=== PATIENT | female | born 1985 | race Caucasian/White ===

== ENCOUNTER → 2017-11-06 16:12 | Outpatient (CLI) | payer OTHER, SELFPAY ==
[2017-11-06 17:39] LABS: Thyroid Stim Hormone (TSH) 1.83 uIU/mL (0.358-3.74)
== END ==
PROVIDERS: Family Provider Family Medicine; PCP Family Medicine; Visit Provider Obstetrics & Gynecology
DX: E28.2 Polycystic ovarian syndrome (principal)
CPT/HCPCS: 84443

== ENCOUNTER → 2018-12-03 12:23 | Outpatient (CLI) | payer SELFPAY ==
[2018-12-03 12:14] VITALS: BMI 38.7
[2018-12-03 13:28] LABS: Absolute Lymphocyte Count 2.56 X10^3/uL (0.83-4.51); Absolute Neutrophil Count 3.7 X10^3/uL (2.0-7.7); Basophil# 0.03 X10^3/uL; Basophil% 0.4 % (0-1); Eosinophil# 0.15 X10^3/uL; Eosinophils% 2.1 % (0-5); Lymphocyte # 2.56 X10^3/ul (4.0); Lymphocyte % 36.6 % (19-41); Mean Corp Hgb Conc 32.6 g/dL (32-36); Mean Corpuscular Hgb 27.3 pg (27.0-32.0); Mean Platelet Vol. 10.3 fl (6.2-12.0); Monocyte# 0.54 X10^3/uL; Monocyte% 7.7 % (0-10); NRBC Flagged by Analyzer 0 % (0-5); Neutrophil # 3.71 X10^3/uL (2.7-7.7); Neutrophil % 53.1 % (47-70); Platelet Count 245 K/mm3 (150-450); RBC Distribution Width CV 12.5 % (11.6-14.6); RBC Distribution Width SD 37.9 fl (35.1-43.9); Red Blood Count 5.12 M/mm3 (4.2-5.4)
[2018-12-03 13:58] LABS: Prolactin 5.6 ng/mL; Thyroid Stim Hormone (TSH) 1.66 uIU/mL (0.358-3.74)
== END ==
PROVIDERS: Family Provider Family Medicine; PCP Family Medicine; Referring Provider Obstetrics & Gynecology; Visit Provider Obstetrics & Gynecology
DX: N92.0 Excessive and frequent menstruation with regular cycle (principal)
CPT/HCPCS: 36415; 84146; 84443; 85025

== ENCOUNTER → 2018-12-09 14:54 | Outpatient (CLI) | payer SELFPAY ==
[2018-12-03 11:24] VITALS: BMI 37.1
[2018-12-03 12:14] VITALS: BMI 38.7
--- NOTE | 2018-12-09 14:58 | US_ITS ---
STUDY: ULTRASOUND TRANSVAGINAL CLINICAL: Female, 33 years old. Menorrhagia. TECHNIQUE: Transvaginal COMPARISON: None. FINDINGS: Normal uterine size measuring 10.6 cm in maximal craniocaudal dimension. There are no myometrial masses. The myometrium is slightly heterogenous. Normal endometrial thickness measuring 10.3 mm. There are no endometrial masses, and there is no fluid in the endometrial cavity. There are nabothian cysts present. Normal right ovary, measuring 4.2 x 3.0 x 3.7 cm. There are multiple follicles without a dominant cyst. Normal left ovary, measuring 4.3 x 3.6 x 2.7 cm. There are multiple follicles without a dominant cyst. There is trace free fluid in the pelvis. Polycystic ovary disease: No. US/Pelvic (Non ) IMPRESSION: Slightly heterogenous myometrium may be secondary to underlying adenomyosis. Electronically Signed: Rin Ricketts MD at 16:42 EDT Tel , Service support ,
--- NOTE | 2018-12-09 14:58 | US_ITS ---
STUDY: ULTRASOUND TRANSVAGINAL CLINICAL: Female, 33 years old. Menorrhagia. TECHNIQUE: Transvaginal COMPARISON: None. FINDINGS: Normal uterine size measuring 10.6 cm in maximal craniocaudal dimension. There are no myometrial masses. The myometrium is slightly heterogenous. Normal endometrial thickness measuring 10.3 mm. There are no endometrial masses, and there is no fluid in the endometrial cavity. There are nabothian cysts present. Normal right ovary, measuring 4.2 x 3.0 x 3.7 cm. There are multiple follicles without a dominant cyst. Normal left ovary, measuring 4.3 x 3.6 x 2.7 cm. There are multiple follicles without a dominant cyst. There is trace free fluid in the pelvis. Polycystic ovary disease: No. US/Transvaginal Non- IMPRESSION: Slightly heterogenous myometrium may be secondary to underlying adenomyosis. Electronically Signed: Rin Ricketts MD at 16:42 EDT Tel , Service support ,
== END ==
PROVIDERS: Family Provider Family Medicine; PCP Family Medicine; Referring Provider Obstetrics & Gynecology; Visit Provider Obstetrics & Gynecology
DX: N92.0 Excessive and frequent menstruation with regular cycle (principal)
CPT/HCPCS: 76830; 76856; 93976

== ENCOUNTER → 2020-09-30 16:28 | Outpatient (CLI) | payer SELFPAY ==
[2020-09-30 13:07] VITALS: BMI 38.7
[2020-10-06 14:24] LABS: HPV APTIMA, High Risk Negative (Negative)
== END ==
PROVIDERS: PCP Family Medicine; Referring Provider Obstetrics & Gynecology; Visit Provider Obstetrics & Gynecology
DX: Z12.4 Encounter for screening for malignant neoplasm of cervix (principal)
CPT/HCPCS: 87624; 88175; G0145

== ENCOUNTER → 2022-01-25 | Outpatient (CLI) | payer SELFPAY ==
--- NOTE | 2022-01-25 08:11 | BI_ITS ---
MAMMOGRAPHY - BILATERAL SCREENING REASON FOR EXAM: Female, 36 years old. Routine annual screening examination. PERTINENT HISTORY: Sister with breast cancer. TECHNIQUE: Digital bilateral breast dieter (3D mammographic acquisition) in the CC and MLO projections. 2-D mediolateral oblique (MLO) and craniocaudad (CC) views of both breasts were obtained. CAD: Full Field Digital Mammography with Computer Added Detection was performed. COMPARISON: None. Baseline examination. FINDINGS: Breast Composition: There are scattered areas of fibroglandular density. There are no dominant masses or suspicious calcifications. No other significant abnormalities are identified. BI/SCRN MAMM (CAD)W/DIETER BILAT IMPRESSION: Negative screening mammogram. Yearly followup mammogram recommended. (A) ASSESSMENT CATEGORY: BIRADS Category 1: Negative. A letter regarding these results will be sent to the patient by the facility within 30 days. Approximately 10% of breast cancers are not detected by mammography. A normal mammogram should not delay biopsy of a clinically suspicious abnormality. [id number] Electronically Signed: Trenton Bocanegra MD at 10:03 EDT ,
== END | disposition home or self-care (01) ==
PROVIDERS: PCP Physician Assistant; Referring Provider Obstetrics & Gynecology; Visit Provider Obstetrics & Gynecology
DX: Z12.31 Encounter for screening mammogram for malignant neoplasm of breast (principal); Z80.3 Family history of malignant neoplasm of breast
CPT/HCPCS: 77063; 77067

== ENCOUNTER → 2024-08-15 | Outpatient (CLI) | payer SELFPAY | END | disposition home or self-care (01) | LOC: LABSPEC 10:54 | PROVIDERS: PCP Physician Assistant; Referring Provider Obstetrics & Gynecology; Visit Provider Obstetrics & Gynecology | DX: Z12.4 Encounter for screening for malignant neoplasm of cervix (principal) | CPT/HCPCS: 87624; 88175; G0145 ==